=== PATIENT | male | born 1935 | race Caucasian/White ===

== ENCOUNTER 2018-02-04 10:51 | Day surgery (SDC) | payer OTHER ==
[~2018-02-04] VITALS: Ht 175.3 cm; Wt 106.8 kg
[~2018-02-04 10:51] MED LIST: ASCO10007 PO; ATOR40TA71 PO; CHOL20004 PO; DOCU100C33 PO; FURO80TA3 PO; GLIP10TA9 PO; INSU10VI3 SQ; METF10004 PO; METO2.5T2 PO; MODA200T48 PO; NITR0.4T50 SL; POTA-79 PO; SODIUM CHLORIDE 0.9% 1000ML 1,000 ML IV ONE; SPIR25TA6 PO; VITA1CAP85 PO
[2018-02-04 11:09] VITALS: BP 131/64
[2018-02-04] MEDS ORDERED: PROPOFOL 10 MG/ML 20ML VIAL IV ONE ×2 (12:07→12:31)
[2018-02-04 12:49] VITALS: BP 74/29
== END 2018-02-04 13:25 | disposition home or self-care (01) ==
LOC: ENDO 10:51 → DAH 10:51 → ENDO 13:25
PROVIDERS: ATTEND Internal Medicine Gastroenterology
DX: Z12.11 Encounter for screening for malignant neoplasm of colon (principal); D12.4 Benign neoplasm of descending colon; R13.10 Dysphagia, unspecified; K29.70 Gastritis, unspecified, without bleeding; B96.81 Helicobacter pylori [H. pylori] as the cause of diseases classified elsewhere; K57.30 Diverticulosis of large intestine without perforation or abscess without bleeding; K63.89 Other specified diseases of intestine; Z86.010 Personal history of colon polyps; I10 Essential (primary) hypertension; J45.909 Unspecified asthma, uncomplicated; G47.33 Obstructive sleep apnea (adult) (pediatric); N40.0 Benign prostatic hyperplasia without lower urinary tract symptoms; E11.9 Type 2 diabetes mellitus without complications; Z95.1 Presence of aortocoronary bypass graft; I25.10 Atherosclerotic heart disease of native coronary artery without angina pectoris; E78.4 Other hyperlipidemia; Z90.49 Acquired absence of other specified parts of digestive tract; Z96.653 Presence of artificial knee joint, bilateral; Z98.890 Other specified postprocedural states; M19.90 Unspecified osteoarthritis, unspecified site
CPT/HCPCS: 43239; 43248; 45385; 82948 ×2; 88305; 88312; 93005; A4606; J2704 ×2; J7030

== ENCOUNTER → 2018-08-03 | Outpatient (CLI) | payer OTHER ==
[~2018-08-03] MED LIST changes: +ALBUTEROL SULFATE 0.083% 2.5 MG/3 ML INH IH ONE; +METF-446 PO; -METF10004 PO; -SODIUM CHLORIDE 0.9% 1000ML 1,000 ML IV ONE
== END | disposition home or self-care (01) ==
LOC: RESP 12:56
PROVIDERS: ATTEND Internal Medicine
DX: J44.9 Chronic obstructive pulmonary disease, unspecified (principal); R06.00 Dyspnea, unspecified
CPT/HCPCS: 94060; 94727; 94729

== ENCOUNTER → 2018-12-27 | Outpatient (CLI) | payer OTHER ==
[~2018-12-27] MED LIST changes: -ALBUTEROL SULFATE 0.083% 2.5 MG/3 ML INH IH ONE
== END | disposition home or self-care (01) ==
LOC: SHCH 14:55
PROVIDERS: ATTEND Internal Medicine Cardiovascular Disease
DX: I50.32 Chronic diastolic (congestive) heart failure (principal); I95.2 Hypotension due to drugs
CPT/HCPCS: 93306

== ENCOUNTER → 2020-05-22 | Outpatient (CLI) | payer OTHER ==
[~2020-05-22] MED LIST changes: +ASCO100031 PO; -ASCO10007 PO
== END | disposition home or self-care (01) ==
LOC: SHCH 15:14
PROVIDERS: ATTEND Internal Medicine Cardiovascular Disease
DX: I51.7 Cardiomegaly (principal); I50.31 Acute diastolic (congestive) heart failure
CPT/HCPCS: 93306; 93356

== ENCOUNTER 2021-02-05 21:20 | Inpatient (IN) | payer MEDICARE, OTHER ==
[~2021-02-05] VITALS: Ht 177.8 cm; Wt 89.4 kg
[2021-02-05 21:39] LABS: BASOPHILS % (AUTO) 0.3 % (0.0-5.0); EOSINOPHILS % (AUTO) 1.1 % (0.0-8.0); HEMATOCRIT 37.3 % (42-54); LYMPHOCYTES % (AUTO) 6.7 % (21.0-51.0); MEAN CORPUSCULAR HEMOGLOBIN 29.8 pg (27.0-33.0); MEAN CORPUSCULAR HGB CONC 32.2 g/dL (32.0-36.0); MEAN CORPUSCULAR VOLUME 92.6 fL (79-99); MONOCYTES % (AUTO) 7.1 % (3.0-13.0); NEUTROPHILS % (AUTO) 84.2 % (40.0-77.0); PLATELET COUNT (AUTO) 217 K/uL (130-400); RED BLOOD CELL COUNT(AUTO) 4.03 MIL/uL (4.50-6.20); RED CELL DISTRIBUTION WIDTH 13.9 % (11.0-15.5)
[2021-02-05 21:55] LABS: INR 1.14 (0.85-1.15); PROTHROMBIN TIME 12.3 SEC (9.6-11.6)
[2021-02-05 21:56] LABS: CREATININE 0.9 mg/dL (0.5-1.5); POTASSIUM 4.2 mmol/L (3.5-5.1)
[2021-02-05 21:57] LABS: PARTIAL THROMBOPLASTIN TIME 27.9 SEC (26.3-35.5)
[2021-02-05 22:03] LABS: ALBUMIN 3.5 g/dL (3.5-5.0); BILIRUBIN,TOTAL 0.8 mg/dL (0.2-1.0)
[2021-02-05 22:48] LABS: APPEARANCE,URINE Cloudy (CLEAR); BILIRUBIN,URINE Negative (NEGATIVE); COLOR,URINE Dark Yellow (YELLOW); GLUCOSE, URINE (UA) Negative (NEGATIVE); KETONES,URINE 40 mg/dL (NEGATIVE); LEUKOCYTE ESTERASE ,URINE Large (NEGATIVE); NITRATE,URINE Positive (NEGATIVE); OCCULT BLOOD,URINE Moderate (NEGATIVE); PH,URINE 5.5 (5.0-8.0); PROTEIN,URINE POS 1+ mg/dL (NEGATIVE)
[2021-02-05 22:58] LABS: BACTERIA,URINE Moderate /HPF (None Seen); WBC,URINE TNTC /HPF (0-1)
[2021-02-05] MEDS ORDERED: CEFTRIAXONE 1G VIAL ONE (23:18)
[2021-02-05] MEDS ORDERED: DEXTROSE 50%-WATER 50 ML DISP.SYRIN IV PRN (23:30)
[2021-02-05] MEDS ORDERED: 0.9%NACL 1000ML 1,000 ML IV SCH (23:30)
[2021-02-05] MEDS ORDERED: GLUCAGON 1MG KIT 1 MG ML IM PRN (23:30)
[2021-02-05] MEDS ORDERED: ACETAMINOPHEN 325 MG TAB PO PRN ×2 (23:30)
[2021-02-05] MEDS ORDERED: NITROGLYCERIN 0.4 MG SL TAB SL PRN (23:30)
[2021-02-05] MEDS ORDERED: ONDANSETRON 4MG INJ IV PRN (23:30)
[2021-02-05 23:52] LABS: HEMOGLOBIN A1C 6.2 % (4.0-6.0)
[2021-02-06] MEDS ORDERED: 0.9%NACL 1000ML 1,000 ML IV ONE (01:13)
[2021-02-06 05:20] VITALS: BP 102/51
[2021-02-06] MEDS: INSULIN HUMULIN R 100 UNIT/ML 3ML SQ SCH ×4 (06:04→21:32)
[2021-02-06 06:17] LABS: BASOPHILS % (AUTO) 0.2 % (0.0-5.0); EOSINOPHILS % (AUTO) 1.3 % (0.0-8.0); HEMATOCRIT 35.6 % (42-54); LYMPHOCYTES % (AUTO) 6.6 % (21.0-51.0); MEAN CORPUSCULAR HEMOGLOBIN 29.6 pg (27.0-33.0); MEAN CORPUSCULAR HGB CONC 32.3 g/dL (32.0-36.0); MEAN CORPUSCULAR VOLUME 91.8 fL (79-99); MONOCYTES % (AUTO) 8.5 % (3.0-13.0); NEUTROPHILS % (AUTO) 82.8 % (40.0-77.0); PLATELET COUNT (AUTO) 186 K/uL (130-400); RED BLOOD CELL COUNT(AUTO) 3.88 MIL/uL (4.50-6.20); RED CELL DISTRIBUTION WIDTH 13.8 % (11.0-15.5); WHITE BLOOD COUNT (AUTO) 12.6 K/uL (4.8-10.8)
[2021-02-06 06:45] LABS: ALANINE AMINOTRANSFERASE 20 U/L (12-78); ASPARTATE AMINOTRANSFERASE 17 U/L (10-37); BILIRUBIN,TOTAL 0.9 mg/dL (0.2-1.0); CARBON DIOXIDE 27 mmol/L (21-32); CHLORIDE 103 mmol/L (101-111); CREATINE KINASE, TOTAL 90 U/L (21-232); CREATININE 0.8 mg/dL (0.5-1.5); GLOMERULAR FILTR. RATE CALC 98 mL/min (>60); GLUCOSE,RANDOM 100 mg/dL (70-105); MYOGLOBIN 88 ng/mL (10-92); POTASSIUM 3.6 mmol/L (3.5-5.1); SODIUM SERUM 139 mmol/L (136-145); TROPONIN I < 0.04 ng/mL (0.00-0.06); UREA NITROGEN, BLOOD 17 mg/dL (7-18)
[2021-02-06 08:52] VITALS: BP 109/53
[2021-02-06] MEDS: FAMOTIDINE 20MG TAB PO SCH ×2 (09:29→20:33)
[2021-02-06] MEDS: ENOXAPARIN SODIUM 30 MG/0.3 ML SQ SCH (09:31)
[2021-02-06 12:00] VITALS: BP 104/74
[2021-02-06 17:11] VITALS: BP 129/62
[2021-02-06 20:00] VITALS: BP 104/49
[2021-02-06] MEDS: CEFTRIAXONE 1G VIAL IV SCH (20:33)
[2021-02-06] MEDS: ATORVASTATIN 40 MG TABLET PO SCH (20:34)
[2021-02-06] MEDS: DOCUSATE SODIUM 100 MG CAP PO SCH (20:34)
[2021-02-06] MEDS: KCL 20 MEQ ERTAB PO SCH (20:34)
[2021-02-06] MEDS: FUROSEMIDE 80 MG TABLET PO SCH (20:34)
[2021-02-06] MEDS: SPIRONOLACTONE 25 MG TAB PO SCH (20:44)
[2021-02-06] MEDS ORDERED: CEFTRIAXONE 1G VIAL IV SCH (21:00)
[2021-02-07] VITALS: BP 107/54
[2021-02-07 04:00] VITALS: BP 113/54
[2021-02-07 04:50] LABS: BASOPHILS % (AUTO) 0.6 % (0.0-5.0); EOSINOPHILS % (AUTO) 3.3 % (0.0-8.0); HEMATOCRIT 37.9 % (42-54); LYMPHOCYTES % (AUTO) 9.8 % (21.0-51.0); MEAN CORPUSCULAR HEMOGLOBIN 29.6 pg (27.0-33.0); MEAN CORPUSCULAR HGB CONC 31.9 g/dL (32.0-36.0); MEAN CORPUSCULAR VOLUME 92.7 fL (79-99); NEUTROPHILS % (AUTO) 75.4 % (40.0-77.0); PLATELET COUNT (AUTO) 202 K/uL (130-400); RED BLOOD CELL COUNT(AUTO) 4.09 MIL/uL (4.50-6.20); RED CELL DISTRIBUTION WIDTH 13.7 % (11.0-15.5)
[2021-02-07 05:11] LABS: ALBUMIN 2.9 g/dL (3.5-5.0); BILIRUBIN,TOTAL 0.4 mg/dL (0.2-1.0); POTASSIUM 3.4 mmol/L (3.5-5.1); TOTAL PROTEIN, SERUM 6.4 g/dL (6.0-8.3)
[2021-02-07] MEDS ORDERED: LIDOCAINE HCL-MPF 1% 2ML VIAL IV PRN (05:45)
[2021-02-07] MEDS ORDERED: POTASSIUM CHLORIDE 20MEQ/100ML 100 ML IV PRN (05:45)
[2021-02-07] MEDS ORDERED: POTASSIUM CHLORIDE 10% ELIXIR 20 MEQ/15 ML UDCUP PO PRN (05:45)
[2021-02-07] MEDS ORDERED: KCL 20 MEQ ERTAB PO PRN (05:45)
[2021-02-07] MEDS: INSULIN HUMULIN R 100 UNIT/ML 3ML SQ SCH ×4 (06:24→21:19)
[2021-02-07 08:00] VITALS: BP 111/59
[2021-02-07] MEDS: CEFTRIAXONE 1G VIAL IV SCH ×2 (09:15→21:15)
[2021-02-07] MEDS: SPIRONOLACTONE 25 MG TAB PO SCH ×2 (09:15→21:15)
[2021-02-07] MEDS: DOCUSATE SODIUM 100 MG CAP PO SCH ×2 (09:16→21:15)
[2021-02-07] MEDS: CHOLECALCIFEROL 2000 UNIT PO SCH (09:16)
[2021-02-07] MEDS: KCL 20 MEQ ERTAB PO SCH ×2 (09:17→21:16)
[2021-02-07] MEDS: FUROSEMIDE 80 MG TABLET PO SCH ×2 (09:17→21:16)
[2021-02-07] MEDS: FAMOTIDINE 20MG TAB PO SCH ×2 (09:17→21:16)
[2021-02-07] MEDS: ASCORBIC ACID 500 MG TAB PO SCH (09:18)
[2021-02-07] MEDS: ENOXAPARIN SODIUM 30 MG/0.3 ML SQ SCH (09:18)
[2021-02-07 12:00] VITALS: BP 110/50
[2021-02-07 16:00] VITALS: BP 124/71
[2021-02-07 19:30] VITALS: BP 119/63
[2021-02-07] MEDS: ATORVASTATIN 40 MG TABLET PO SCH (21:15)
[2021-02-08] VITALS (7 sets, daily range): BP systolic 96–115; BP diastolic 55–65
[2021-02-08 05:39] LABS: BASOPHILS % (AUTO) 0.8 % (0.0-5.0); EOSINOPHILS % (AUTO) 5.5 % (0.0-8.0); HEMATOCRIT 38.8 % (42-54); LYMPHOCYTES % (AUTO) 21.3 % (21.0-51.0); MEAN CORPUSCULAR HEMOGLOBIN 30.1 pg (27.0-33.0); MEAN CORPUSCULAR HGB CONC 33.8 g/dL (32.0-36.0); MEAN CORPUSCULAR VOLUME 89.2 fL (79-99); MONOCYTES % (AUTO) 15.6 % (3.0-13.0); NEUTROPHILS % (AUTO) 55.9 % (40.0-77.0); PLATELET COUNT (AUTO) 227 K/uL (130-400); RED BLOOD CELL COUNT(AUTO) 4.35 MIL/uL (4.50-6.20); RED CELL DISTRIBUTION WIDTH 13.3 % (11.0-15.5); WHITE BLOOD COUNT (AUTO) 5.3 K/uL (4.8-10.8)
[2021-02-08 05:56] LABS: ALBUMIN 3.1 g/dL (3.5-5.0); BILIRUBIN,TOTAL 0.4 mg/dL (0.2-1.0); CREATININE 1.1 mg/dL (0.5-1.5); POTASSIUM 3.4 mmol/L (3.5-5.1); TOTAL PROTEIN, SERUM 6.9 g/dL (6.0-8.3)
[2021-02-08] MEDS: INSULIN HUMULIN R 100 UNIT/ML 3ML SQ SCH ×4 (06:14→19:50)
[2021-02-08] MEDS: DOCUSATE SODIUM 100 MG CAP PO SCH ×2 (08:52→19:39)
[2021-02-08] MEDS: CEFTRIAXONE 1G VIAL IV SCH ×2 (08:52→19:39)
[2021-02-08] MEDS: SPIRONOLACTONE 25 MG TAB PO SCH ×2 (08:52→19:39)
[2021-02-08] MEDS: CHOLECALCIFEROL 2000 UNIT PO SCH (08:53)
[2021-02-08] MEDS: ENOXAPARIN SODIUM 30 MG/0.3 ML SQ SCH (08:54)
[2021-02-08] MEDS: ASCORBIC ACID 500 MG TAB PO SCH (08:54)
[2021-02-08] MEDS: FUROSEMIDE 80 MG TABLET PO SCH ×2 (08:54→19:39)
[2021-02-08] MEDS: KCL 20 MEQ ERTAB PO SCH ×2 (08:54→19:40)
[2021-02-08] MEDS: FAMOTIDINE 20MG TAB PO SCH ×2 (08:54→19:39)
[2021-02-08] MEDS: ATORVASTATIN 40 MG TABLET PO SCH (19:39)
[2021-02-09 04:02] VITALS: BP 104/55
[2021-02-09 05:15] LABS: BASOPHILS % (AUTO) 0.8 % (0.0-5.0); EOSINOPHILS % (AUTO) 7.3 % (0.0-8.0); HEMATOCRIT 40.3 % (42-54); LYMPHOCYTES % (AUTO) 26.2 % (21.0-51.0); MEAN CORPUSCULAR HEMOGLOBIN 30.1 pg (27.0-33.0); MEAN CORPUSCULAR HGB CONC 33.5 g/dL (32.0-36.0); MONOCYTES % (AUTO) 17.9 % (3.0-13.0); NEUTROPHILS % (AUTO) 47.3 % (40.0-77.0); PLATELET COUNT (AUTO) 230 K/uL (130-400); RED BLOOD CELL COUNT(AUTO) 4.48 MIL/uL (4.50-6.20); RED CELL DISTRIBUTION WIDTH 13.3 % (11.0-15.5); WHITE BLOOD COUNT (AUTO) 6.2 K/uL (4.8-10.8)
[2021-02-09 05:41] LABS: ALBUMIN 3.2 g/dL (3.5-5.0); BILIRUBIN,TOTAL 0.3 mg/dL (0.2-1.0); CREATININE 1.1 mg/dL (0.5-1.5); POTASSIUM 3.6 mmol/L (3.5-5.1); TOTAL PROTEIN, SERUM 7.1 g/dL (6.0-8.3)
[2021-02-09] MEDS: INSULIN HUMULIN R 100 UNIT/ML 3ML SQ SCH ×3 (06:31→16:30)
[2021-02-09 07:26] VITALS: BP 107/62
[2021-02-09] MEDS: CEFTRIAXONE 1G VIAL IV SCH (08:43)
[2021-02-09] MEDS: SPIRONOLACTONE 25 MG TAB PO SCH (08:43)
[2021-02-09] MEDS: CHOLECALCIFEROL 2000 UNIT PO SCH (08:43)
[2021-02-09] MEDS: DOCUSATE SODIUM 100 MG CAP PO SCH (08:43)
[2021-02-09] MEDS: KCL 20 MEQ ERTAB PO SCH (08:44)
[2021-02-09] MEDS: FUROSEMIDE 80 MG TABLET PO SCH (08:44)
[2021-02-09] MEDS: FAMOTIDINE 20MG TAB PO SCH (08:44)
[2021-02-09] MEDS: ASCORBIC ACID 500 MG TAB PO SCH (08:44)
[2021-02-09] MEDS: ENOXAPARIN SODIUM 30 MG/0.3 ML SQ SCH (08:45)
[2021-02-09 11:21] VITALS: BP 101/56
[2021-02-09 16:22] VITALS: BP 117/66
[2021-08-25] MEDS ORDERED: GLIP10TA9 PO (17:20)
[2021-08-25] MEDS ORDERED: ASCO500T10 PO (17:20)
[2021-08-25] MEDS ORDERED: TORS5TAB12 PO (17:20)
[2021-08-25] MEDS ORDERED: MULT-1203 PO (17:20)
[2021-08-25] MEDS ORDERED: FAMO20TA8 PO (17:20)
[2021-08-25] MEDS ORDERED: DOCU-116 PO (17:20)
[2021-08-25] MEDS ORDERED: MODA200T48 PO (17:20)
[2021-08-25] MEDS ORDERED: ERGO50CA PO (17:20)
[2021-08-25] MEDS ORDERED: VITA1CAP85 PO (17:20)
[2021-08-25] MEDS ORDERED: NITR0.4T50 SL (17:20)
[2021-08-25] MEDS ORDERED: POTA20PA41 PO (17:20)
[2021-08-25] MEDS ORDERED: ZINC220T4 PO (17:20)
[2021-08-25] MEDS ORDERED: METF500S7 PO (17:20)
[2021-08-25] MEDS ORDERED: ACET325T51 PO (17:20)
[2021-10-19] MEDS ORDERED: CARB15DR OP (18:20)
[2021-10-19] MEDS ORDERED: METF-444 PO (18:20)
[2021-10-19] MEDS ORDERED: CALC-116 PO (18:20)
[2021-10-19] MEDS ORDERED: CHOL2000 PO (18:20)
[2021-10-19] MEDS ORDERED: POTA-202 PO (18:20)
[2021-10-19] MEDS ORDERED: FEXO-59 PO (18:20)
[2021-10-19] MEDS ORDERED: MAGN500C15 PO (18:20)
[2021-10-19] MEDS ORDERED: GLIP10TA9 PO (18:20)
[2021-10-19] MEDS ORDERED: [UNRECOGNIZED DRUG - CODE] PO (18:20)
[2021-10-19] MEDS ORDERED: CYAN-35 PO (18:20)
== END 2021-02-09 21:45 | DRG 871 ==
LOC: EDBD → EDH 21:20 → EDHIP 23:29 → 3CH 02-06 05:10
PROVIDERS: ADMIT Internal Medicine; ATTEND Internal Medicine
DX: A41.9 Sepsis, unspecified organism (principal); G93.41 Metabolic encephalopathy; N39.0 Urinary tract infection, site not specified; I50.32 Chronic diastolic (congestive) heart failure; B96.20 Unspecified Escherichia coli [E. coli] as the cause of diseases classified elsewhere; E11.9 Type 2 diabetes mellitus without complications; E87.6 Hypokalemia; G47.419 Narcolepsy without cataplexy; I25.10 Atherosclerotic heart disease of native coronary artery without angina pectoris; Z80.1 Family history of malignant neoplasm of trachea, bronchus and lung; Z82.0 Family history of epilepsy and other diseases of the nervous system; Z82.3 Family history of stroke; Z82.49 Family history of ischemic heart disease and other diseases of the circulatory system; Z82.5 Family history of asthma and other chronic lower respiratory diseases; Z83.3 Family history of diabetes mellitus; Z95.1 Presence of aortocoronary bypass graft; G47.33 Obstructive sleep apnea (adult) (pediatric); Z90.49 Acquired absence of other specified parts of digestive tract; Z88.6 Allergy status to analgesic agent; Z88.5 Allergy status to narcotic agent; Z88.8 Allergy status to other drugs, medicaments and biological substances; Z98.42 Cataract extraction status, left eye; Z98.41 Cataract extraction status, right eye; Z20.822 Contact with and (suspected) exposure to COVID-19
CPT/HCPCS: 36415; 71045; 80053; 81001; 82550; 82948; 83036; 83605; 83735; 83874; 83880; 84145; 84484; 85025; 85610; 85730; 87040; 87077; 87088; 87186; 93005; 97039; G0378; J0696; J1650; J1815; J7030; U0003

== ENCOUNTER 2021-08-08 17:49 | Emergency (ER) | payer MEDICARE ==
[~2021-08-08] VITALS: Ht 175.3 cm; Wt 97.5 kg
[2021-08-08 18:32] LABS: BASOPHILS % (AUTO) 0.5 % (0.0-5.0); EOSINOPHILS % (AUTO) 3.8 % (0.0-8.0); LYMPHOCYTES % (AUTO) 19.9 % (21.0-51.0); MEAN CORPUSCULAR HEMOGLOBIN 30.5 pg (27.0-33.0); MEAN CORPUSCULAR HGB CONC 33.4 g/dL (32.0-36.0); MEAN CORPUSCULAR VOLUME 91.3 fL (79-99); NEUTROPHILS % (AUTO) 67.5 % (40.0-77.0); PLATELET COUNT (AUTO) 256 K/uL (130-400); RED BLOOD CELL COUNT(AUTO) 4.16 MIL/uL (4.50-6.20); WHITE BLOOD COUNT (AUTO) 6.6 K/uL (4.8-10.8)
[2021-08-08 18:45] LABS: CARBON DIOXIDE 30 mmol/L (21-32); CHLORIDE 105 mmol/L (101-111); CREATININE 0.9 mg/dL (0.5-1.5); GLOMERULAR FILTR. RATE CALC 85 mL/min (>60); GLUCOSE,RANDOM 105 mg/dL (70-105); POTASSIUM 3.9 mmol/L (3.5-5.1); SODIUM SERUM 143 mmol/L (136-145); UREA NITROGEN, BLOOD 20 mg/dL (7-18)
[2021-08-08 18:50] LABS: ALANINE AMINOTRANSFERASE 30 U/L (12-78); ALBUMIN 3.8 g/dL (3.5-5.0); ASPARTATE AMINOTRANSFERASE 20 U/L (10-37); B-TYPE NATRIURETIC PEPTIDE 38 pg/mL (0-100); BILIRUBIN,TOTAL 0.4 mg/dL (0.2-1.0); TOTAL PROTEIN, SERUM 7.1 g/dL (6.0-8.3)
[2021-08-08 18:56] LABS: CRP QUANTITATIVE < 2.00 mg/L (0.00-9.0)
[2021-08-08 20:00] LABS: APPEARANCE,URINE Clear (CLEAR); BILIRUBIN,URINE Negative (NEGATIVE); COLOR,URINE Yellow (YELLOW); GLUCOSE, URINE (UA) Negative (NEGATIVE); KETONES,URINE 40 mg/dL (NEGATIVE); LEUKOCYTE ESTERASE ,URINE Small (NEGATIVE); NITRATE,URINE Negative (NEGATIVE); OCCULT BLOOD,URINE Negative (NEGATIVE); PROTEIN,URINE Negative (NEGATIVE); UROBILINOGEN,URINE 0.2 mg/dL (0.2-1.0)
[2021-08-08 20:06] LABS: BACTERIA,URINE Rare /HPF (None Seen); RBC,URINE 0-1 /HPF (0-1)
[2021-08-08 20:07] LABS: HYALINE CASTS, URINE 0-1 /LPF (0-1 /LPF); SQUAMOUS EPITHELIAL CELL,UR Rare /HPF (0-2)
[2021-08-08 20:27] VITALS: BP 118/59
[2021-08-25] MEDS ORDERED: GLIP10TA9 PO (17:20)
[2021-08-25] MEDS ORDERED: MODA200T48 PO (17:20)
[2021-08-25] MEDS ORDERED: METF500S7 PO (17:20)
[2021-08-25] MEDS ORDERED: ASCO500T10 PO (17:20)
[2021-08-25] MEDS ORDERED: VITA1CAP85 PO (17:20)
[2021-08-25] MEDS ORDERED: NITR0.4T50 SL (17:20)
[2021-08-25] MEDS ORDERED: FAMO20TA8 PO (17:20)
[2021-08-25] MEDS ORDERED: ZINC220T4 PO (17:20)
[2021-08-25] MEDS ORDERED: ACET325T51 PO (17:20)
[2021-08-25] MEDS ORDERED: POTA20PA41 PO (17:20)
[2021-08-25] MEDS ORDERED: ERGO50CA PO (17:20)
[2021-08-25] MEDS ORDERED: TORS5TAB12 PO (17:20)
[2021-08-25] MEDS ORDERED: DOCU-116 PO (17:20)
[2021-08-25] MEDS ORDERED: MULT-1203 PO (17:20)
[2021-10-19] MEDS ORDERED: CYAN-35 PO (18:20)
[2021-10-19] MEDS ORDERED: METF-444 PO (18:20)
[2021-10-19] MEDS ORDERED: FEXO-59 PO (18:20)
[2021-10-19] MEDS ORDERED: CHOL2000 PO (18:20)
[2021-10-19] MEDS ORDERED: CALC-116 PO (18:20)
[2021-10-19] MEDS ORDERED: [UNRECOGNIZED DRUG - CODE] PO (18:20)
[2021-10-19] MEDS ORDERED: MAGN500C15 PO (18:20)
[2021-10-19] MEDS ORDERED: GLIP10TA9 PO (18:20)
[2021-10-19] MEDS ORDERED: POTA-202 PO (18:20)
[2021-10-19] MEDS ORDERED: CARB15DR OP (18:20)
== END 2021-08-08 20:34 | disposition home or self-care (01) ==
LOC: EDH 17:49 → EDBD 17:49 → EDH 20:34
DX: R53.1 Weakness (principal); M79.602 Pain in left arm; E11.40 Type 2 diabetes mellitus with diabetic neuropathy, unspecified; I11.0 Hypertensive heart disease with heart failure; I50.9 Heart failure, unspecified; Z79.4 Long term (current) use of insulin; Z79.899 Other long term (current) drug therapy; Z88.5 Allergy status to narcotic agent
CPT/HCPCS: 36415; 70450; 71045; 80053; 81001; 83880; 84484; 85025; 86140; 93005

== ENCOUNTER → 2021-08-12 | Outpatient (CLI) | payer MEDICARE ==
[~2021-08-12] VITALS: Ht 177.8 cm; Wt 98.9 kg
[~2021-08-12] MED LIST changes: +REGADENOSON 0.4 MG/5 ML PF SYG IVP SCH
== END | disposition home or self-care (01) ==
LOC: EDBD → SHCH 08:35
PROVIDERS: ATTEND Internal Medicine Cardiovascular Disease
DX: I50.32 Chronic diastolic (congestive) heart failure (principal)
CPT/HCPCS: 78452; 93017; 96374; A9500 ×2; J2785

== ENCOUNTER 2021-08-26 08:00 | Day surgery (SDC) | payer MEDICARE ==
[2021-08-25 12:45] LABS: BASOPHILS % (AUTO) 0.5 % (0.0-5.0); LYMPHOCYTES % (AUTO) 19.7 % (21.0-51.0); MEAN CORPUSCULAR HEMOGLOBIN 30.8 pg (27.0-33.0); MEAN CORPUSCULAR HGB CONC 32.8 g/dL (32.0-36.0); MEAN CORPUSCULAR VOLUME 93.8 fL (79-99); MONOCYTES % (AUTO) 6.7 % (3.0-13.0); NEUTROPHILS % (AUTO) 68.7 % (40.0-77.0); PLATELET COUNT (AUTO) 279 K/uL (130-400); RED BLOOD CELL COUNT(AUTO) 4.16 MIL/uL (4.50-6.20); RED CELL DISTRIBUTION WIDTH 14.1 % (11.0-15.5); WHITE BLOOD COUNT (AUTO) 7.6 K/uL (4.8-10.8)
[2021-08-25 12:55] LABS: CREATININE 0.9 mg/dL (0.5-1.5); POTASSIUM 4.5 mmol/L (3.5-5.1)
[2021-08-25 12:57] LABS: INR 1.11 (0.85-1.15)
[2021-08-25 12:58] LABS: PARTIAL THROMBOPLASTIN TIME 30.4 SEC (26.3-35.5)
[2021-08-25 13:44] LABS: APPEARANCE,URINE Clear (CLEAR); BILIRUBIN,URINE Negative (NEGATIVE); COLOR,URINE Yellow (YELLOW); GLUCOSE, URINE (UA) Negative (NEGATIVE); KETONES,URINE 15 mg/dL (NEGATIVE); LEUKOCYTE ESTERASE ,URINE Negative (NEGATIVE); NITRATE,URINE Negative (NEGATIVE); OCCULT BLOOD,URINE Negative (NEGATIVE); PROTEIN,URINE Negative (NEGATIVE); UROBILINOGEN,URINE 0.2 mg/dL (0.2-1.0)
[2021-08-25 14:23] LABS: BACTERIA,URINE Rare /HPF (None Seen); RBC,URINE 0-1 /HPF (0-1); SQUAMOUS EPITHELIAL CELL,UR Rare /HPF (0-2); WBC,URINE 0-1 /HPF (0-1)
[2021-08-25 16:04] VITALS: BP 136/63
[2021-08-26] VITALS (9 sets, daily range): BP systolic 112–148; BP diastolic 49–83
[~2021-08-26] VITALS: Ht 177.8 cm; Wt 97.5 kg
[~2021-08-26 08:00] MED LIST changes: +0.9% NACL 500ML IV.SOLN 500 ML IV SCH; +ACET325T51 PO; -ASCO100031 PO; +ASCO500T10 PO; -ATOR40TA71 PO; -CHOL20004 PO; +DOCU-116 PO; -DOCU100C33 PO; +ERGO50CA PO; +FAMO20TA8 PO; -FURO80TA3 PO; -INSU10VI3 SQ; -METF-446 PO; +METF500S7 PO; -METO2.5T2 PO; +MULT-1203 PO; -POTA-79 PO; +POTA20PA41 PO; -REGADENOSON 0.4 MG/5 ML PF SYG IVP SCH; -SPIR25TA6 PO; +TORS5TAB12 PO; +ZINC220T4 PO
[2021-08-26] MEDS ORDERED: IOHEXOL 350 MG/ML 100ML INFUS..BTL IV ONE ×2 (10:18→10:48)
[2021-08-26] MEDS ORDERED: LIDOCAINE HCL 400MG/20ML VIAL ONE (10:19)
[2021-08-26] MEDS ORDERED: MIDAZOLAM HCL 1 MG/ML 2ML VIAL ONE (10:54)
[2021-08-26] MEDS ORDERED: 0.9%NACL 1000ML 1,000 ML IV ONE (19:41)
[2021-10-19] MEDS ORDERED: CHOL2000 PO (18:20)
[2021-10-19] MEDS ORDERED: [UNRECOGNIZED DRUG - CODE] PO (18:20)
[2021-10-19] MEDS ORDERED: CALC-116 PO (18:20)
[2021-10-19] MEDS ORDERED: FEXO-59 PO (18:20)
[2021-10-19] MEDS ORDERED: POTA-202 PO (18:20)
[2021-10-19] MEDS ORDERED: CYAN-35 PO (18:20)
[2021-10-19] MEDS ORDERED: METF-444 PO (18:20)
[2021-10-19] MEDS ORDERED: MAGN500C15 PO (18:20)
[2021-10-19] MEDS ORDERED: CARB15DR OP (18:20)
[2021-10-19] MEDS ORDERED: GLIP10TA9 PO (18:20)
== END 2021-08-26 15:00 | disposition home or self-care (01) ==
LOC: DAH 08:00
PROVIDERS: ATTEND Internal Medicine Cardiovascular Disease
DX: I95.1 Orthostatic hypotension (principal); R06.02 Shortness of breath; I11.0 Hypertensive heart disease with heart failure; E11.42 Type 2 diabetes mellitus with diabetic polyneuropathy; J44.9 Chronic obstructive pulmonary disease, unspecified; I50.42 Chronic combined systolic (congestive) and diastolic (congestive) heart failure; I45.10 Unspecified right bundle-branch block; G47.33 Obstructive sleep apnea (adult) (pediatric); E78.00 Pure hypercholesterolemia, unspecified; J45.909 Unspecified asthma, uncomplicated; Z90.49 Acquired absence of other specified parts of digestive tract; Z88.6 Allergy status to analgesic agent; Z88.8 Allergy status to other drugs, medicaments and biological substances; Z86.73 Personal history of transient ischemic attack (TIA), and cerebral infarction without residual deficits; Z98.890 Other specified postprocedural states; Z95.1 Presence of aortocoronary bypass graft; Z98.52 Vasectomy status; Z98.42 Cataract extraction status, left eye; Z98.41 Cataract extraction status, right eye; Z82.49 Family history of ischemic heart disease and other diseases of the circulatory system; Z80.1 Family history of malignant neoplasm of trachea, bronchus and lung; Z79.01 Long term (current) use of anticoagulants; Z79.899 Other long term (current) drug therapy
CPT/HCPCS: 36415; 71045; 80048; 81001; 82948 ×2; 85025; 85610; 85730; 93005; 93451; A4215; A4216; A4221; A4222; A4223 ×3; A4606; A4663; C1769; C1894 ×2; J1644 ×2; J3490; J7030; Q9967; J2250

== ENCOUNTER 2021-10-15 06:07 | Emergency (ER) | payer MEDICARE ==
[~2021-10-15] VITALS: Ht 182.9 cm; Wt 104.3 kg
[~2021-10-15 06:07] MED LIST changes: -0.9% NACL 500ML IV.SOLN 500 ML IV SCH
[2021-10-15 06:59] LABS: BASOPHILS % (AUTO) 0.6 % (0.0-5.0); EOSINOPHILS % (AUTO) 3.6 % (0.0-8.0); HEMATOCRIT 40.4 % (42-54); LYMPHOCYTES % (AUTO) 15.8 % (21.0-51.0); MEAN CORPUSCULAR HEMOGLOBIN 30.6 pg (27.0-33.0); MEAN CORPUSCULAR HGB CONC 32.7 g/dL (32.0-36.0); MEAN CORPUSCULAR VOLUME 93.5 fL (79-99); MONOCYTES % (AUTO) 7.4 % (3.0-13.0); NEUTROPHILS % (AUTO) 72.4 % (40.0-77.0); PLATELET COUNT (AUTO) 259 K/uL (130-400); RED BLOOD CELL COUNT(AUTO) 4.32 MIL/uL (4.50-6.20); WHITE BLOOD COUNT (AUTO) 8.1 K/uL (4.8-10.8)
[2021-10-15 07:09] LABS: INR 1.1 (0.85-1.15); PROTHROMBIN TIME 11.9 SEC (9.6-11.6)
[2021-10-15 07:11] LABS: PARTIAL THROMBOPLASTIN TIME 29.1 SEC (26.3-35.5)
[2021-10-15 07:26] LABS: ALBUMIN 3.9 g/dL (3.5-5.0); B-TYPE NATRIURETIC PEPTIDE 30 pg/mL (0-100); BILIRUBIN,TOTAL 0.3 mg/dL (0.2-1.0); CREATININE 0.8 mg/dL (0.5-1.5); POTASSIUM 3.8 mmol/L (3.5-5.1); TOTAL PROTEIN, SERUM 7.2 g/dL (6.0-8.3)
[2021-10-15 07:32] LABS: APPEARANCE,URINE Clear (CLEAR); BILIRUBIN,URINE Negative (NEGATIVE); COLOR,URINE Yellow (YELLOW); GLUCOSE, URINE (UA) Negative (NEGATIVE); KETONES,URINE 15 mg/dL (NEGATIVE); LEUKOCYTE ESTERASE ,URINE Negative (NEGATIVE); NITRATE,URINE Negative (NEGATIVE); OCCULT BLOOD,URINE Negative (NEGATIVE); PH,URINE 5.5 (5.0-8.0); PROTEIN,URINE Negative (NEGATIVE)
[2021-10-15 07:34] LABS: BACTERIA,URINE Rare /HPF (None Seen); RBC,URINE 0-1 /HPF (0-1); SQUAMOUS EPITHELIAL CELL,UR Rare /HPF (0-2); WBC,URINE 0-1 /HPF (0-1)
[2021-10-15 09:16] VITALS: BP 113/52
[2021-10-19] MEDS ORDERED: MAGN500C15 PO (18:20)
[2021-10-19] MEDS ORDERED: [UNRECOGNIZED DRUG - CODE] PO (18:20)
[2021-10-19] MEDS ORDERED: CALC-116 PO (18:20)
[2021-10-19] MEDS ORDERED: GLIP10TA9 PO (18:20)
[2021-10-19] MEDS ORDERED: CARB15DR OP (18:20)
[2021-10-19] MEDS ORDERED: CHOL2000 PO (18:20)
[2021-10-19] MEDS ORDERED: CYAN-35 PO (18:20)
[2021-10-19] MEDS ORDERED: POTA-202 PO (18:20)
[2021-10-19] MEDS ORDERED: FEXO-59 PO (18:20)
[2021-10-19] MEDS ORDERED: METF-444 PO (18:20)
== END 2021-10-15 10:12 | disposition home or self-care (01) ==
LOC: EDH 06:07
DX: R53.1 Weakness (principal); R29.6 Repeated falls; I50.9 Heart failure, unspecified; J44.9 Chronic obstructive pulmonary disease, unspecified; G62.9 Polyneuropathy, unspecified; Z88.5 Allergy status to narcotic agent; Z88.6 Allergy status to analgesic agent; Z88.8 Allergy status to other drugs, medicaments and biological substances; Z79.84 Long term (current) use of oral hypoglycemic drugs; Z79.899 Other long term (current) drug therapy; Z95.1 Presence of aortocoronary bypass graft
CPT/HCPCS: 36415; 70450; 71045; 74176; 80053; 81001; 83880; 84484; 85025; 85610; 85730; 93005